=== PATIENT | male | born 1960 | race Caucasian/White ===

== ENCOUNTER 2017-11-19 13:53 | Emergency (ER) | payer SELFPAY ==
--- NOTE | 2017-11-19 14:20 | Emergency Department Record ---
History of Present Illness - General Chief Complaint: Knee injury Stated Complaint: LEFT KNEE INJURY W/C Time Seen by Provider: 11/19/17 14:11 Source: Patient Mode of Arrival: Ambulatory Limitations: No limitations - History of Present Illness Initial Comments: The patient is here due to a 2 day hx of L knee pain. He was at work and was working on a bus part and got up to stand and twisted the L knee. Ever since he has had L knee pain. The knee feels mildly swollen at times. He is able to walk with minimal difficulty. MD Complaint: Knee injury Onset/Timin -: Days(s) Place: Work Severity: Mild Severity scale (1-10): 1 Improves With: Nothing Worsens With: Weight bearing, Other Context: Other Associated Symptoms: Ambulatory - Related Data Previous Rx's Medication Instructions Recorded Naproxen [Naprosyn] 500 mg PO BID #14 tablet. 11/19/17 Allergies Allergy/AdvReac Type Severity Reaction Status Date / Time No Known Drug Allergies Allergy Verified 11/19/17 14:10 Travel Screening - Travel/Exposure Within Last 30 Days Have you traveled within the last 30 days?: No Review of Systems Constitutional: Denies: Chills, Fever Past Medical History - SOCIAL HISTORY Smoking Status: Never smoker Alcohol Use: Occasional Drug Use: None - RESPIRATORY Hx Respiratory Disorders: No - CARDIOVASCULAR Hx Cardio Disorders: No - NEURO Hx Neuro Disorders: No - GI Hx GI Disorders: No - Hx Genitourinary Disorders: No - ENDOCRINE Hx Endocrine Disorders: No - MUSCULOSKELETAL Hx Musculoskeletal Disorders: No - PSYCH Hx Psych Problems: No - HEMATOLOGY/ONCOLOGY Hx Hematology/Oncology Disorders: No Family Medical History Any Significant Family History?: No Physical Exam - General General Appearance: Alert, Oriented x3, Cooperative, No acute distress - Head Head exam: Atraumatic, Normocephalic, Normal inspection - Eye Eye exam: Normal appearance, PERRL - Extremities Extremities exam: Full ROM (There is full ROM with no difficulty with no ligamentous laxity.), Normal capillary refill, Tenderness (There is very mild medial L knee tenderness.), Other (The pulses to the L foot are normal.). negative: Normal inspection (There may be very minimal edema around the L Patella.) Course Vital Signs 11/19/17 14:02 Temperature 98.3 F Pulse Rate 75 Respiratory 20 Rate Blood Pressure 171/101 Pulse Ox 96 - Reevaluation(s) Reevaluation #1: I did discuss the xrays with the patient. He is to be off work for 3 days and f/ u with his work Occupational Health Provider on Thursday for further eval. 11/19/17 15:13 Medical Decision Making - Data Complexity MDM Data: X-Ray Ordered and/or Reviewed - Radiology Data Radiology results: Report reviewed (L knee: Neg for fx or dislocation. Possible small effusion.) Disposition Disposition: Discharge Clinical Impression: Sprain of knee Qualifiers: Encounter type: initial encounter Involved ligament of knee: unspecified ligament Laterality: left Qualified Code(s): S83.92XA - Sprain of unspecified site of left knee, initial encounter Disposition: Home, Self-Care Condition: (2) Stable Instructions: Knee Sprain (ED) Additional Instructions: Please keep an gale wrap on the L knee for 3 days doing the day. Please take the Naprosyn as directed and ice and elevate the knee when possible. Please follow up with your work occupational Health provider on Thursday for further evaluation. Prescriptions: Naproxen [Naprosyn] 500 mg PO BID #14 tablet.dr Forms: Patient Portal Access Time of Disposition: 15:15 Quality - Quality Measures Quality Measures: N/A - Blood Pressure Screening View Details: Yes Does Patient Have Any of the Following: No Blood Pressure Classification: Hypertensive Reading Systolic Measurement: 171 Diastolic Measurement: 101 Screening for High Blood Pressure: < Pre-Hypertensive BP, F/U Documented > [ [id number]] Pre-Hypertensive Follow-up Interventions: Referral to alternative/primary care provider.
--- NOTE | 2017-11-20 13:59 | RADIOLOGY REPORT ---
EXAM: KNEE, LEFT 3 VIEWS HISTORY: TWISTED LEFT KNEE WITH PAIN AND DIFFICULTY IN WALKING. TECHNIQUE: Four views, left knee. COMPARISON: None. ENCOUNTER: Initial. FINDINGS: Mild degenerative arthritis in the left knee particularly at the patellofemoral articulation. No fracture or dislocation of the left knee identified. Questionable joint effusion. IMPRESSION: 1. NO FRACTURE OF THE LEFT KNEE IDENTIFIED. 2. MILD DEGENERATIVE ARTHRITIS. 3. POSSIBLE JOINT EFFUSION. JOB NUMBER: [id number] MTDD
== END 2017-11-19 15:23 | disposition home or self-care (01) ==
LOC: ER 13:53
DX: S83.92XA Sprain of unspecified site of left knee, initial encounter (principal); X50.1XXA Overexertion from prolonged static or awkward postures, initial encounter; Y99.0 Civilian activity done for income or pay
CPT/HCPCS: 99283